=== PATIENT | female | born 1965 | race Two or more races ===

== ENCOUNTER 2018-07-16 10:11 | Outpatient (CLI) | payer OTHER | END 2018-07-16 10:20 | disposition home or self-care (01) | LOC: RAD 10:11 | DX: R05 Cough (principal); N39.0 Urinary tract infection, site not specified; M54.89 Other dorsalgia ==

== ENCOUNTER 2023-04-30 04:49 | Emergency (ER) | payer OTHER ==
[~2023-04-30] VITALS: Ht 154.9 cm; Wt 68.0 kg
[2023-04-30] MEDS ORDERED: LEVOTHYROXINE25 MCG PO (05:06)
[2023-04-30] MEDS ORDERED: METHYLPREDNISOLONE SOD SUCC 125 MG VIAL IV STA (05:14)
[2023-04-30] MEDS ORDERED: ALBUTEROL SULFATE 3 ML/2.5 MG AMPUL.NEB IH SCH (05:15)
[2023-04-30 05:40] LABS: HEMATOCRIT 40.2 % (36.0-45.00); HEMOGLOBIN 13.8 g/dL (12.0-15.00); MEAN CELL VOLUME 86.9 fL (80.00-100.00); MEAN CORPUSCULAR HEMOGLOBIN 29.9 pg (27.00-32.0); MEAN CORPUSCULAR HGB CONC 34.4 g/dl (32.0-36.0); PLATELET COUNT 302 K/uL (150-450); RED BLOOD COUNT 4.62 M/uL (4.00-6.00); RED CELL DISTRIBUTION WIDTH 13.4 % (11.5-14.5)
[2023-04-30] MEDS ORDERED: SINGULAIR10 MG PO (07:12)
[2023-04-30] MEDS ORDERED: BUDESONIDE0.5 MG/2 M IH (07:12)
[2023-04-30] MEDS ORDERED: ZYNCOF 20-400120 ML PO (07:12)
[2023-04-30] MEDS ORDERED: ALBUTEROL2.5 MG/3 M IH (07:12)
== END 2023-04-30 07:32 ==
LOC: ER 04:49
PROVIDERS: General Practice
DX: J98.01 Acute bronchospasm (principal); Z20.822 Contact with and (suspected) exposure to COVID-19; Z88.8 Allergy status to other drugs, medicaments and biological substances